=== PATIENT | male | born 1995 | race Caucasian/White ===

== ENCOUNTER 2017-11-23 18:23 | Inpatient (IN) | payer MEDICAID, OTHER ==
[~2017-11-23] VITALS: Ht 182.9 cm; Wt 88.1 kg
[2017-11-23] MEDS ORDERED: ANTIBIOTIC PO (20:17)
[2017-11-23] MEDS ORDERED: CEPH500 PO (20:21)
[2017-11-23] MEDS ORDERED: BACTDSB PO (20:21)
[2017-11-23 20:29] LABS: BASOPHILS % (AUTO) 0.5 % (0.0-2.0); EOSINOPHILS % (AUTO) 5.4 % (1.0-6.0); HEMATOCRIT 41.1 % (41-53); HEMOGLOBIN 14.3 g/dL (13.5-17.5); LYMPHOCYTES # (AUTO) 2.9 K/uL (1.0-4.8); MEAN CORPUSCULAR HEMOGLOBIN 30.6 pg (26.0-34.0); MEAN CORPUSCULAR HGB CONC 34.9 G/dL (31.0-37.0); MEAN CORPUSCULAR VOLUME 88 fL (80-100); MONOCYTES # (AUTO) 0.6 K/uL (0.1-1.0); MONOCYTES % (AUTO) 8.5 % (2.0-9.0); NEUTROPHILS # (AUTO) 3.4 K/uL (1.8-7.7); NEUTROPHILS % (AUTO) 46.6 % (40.0-70.0); PLATELET COUNT (AUTO) 208 K/uL (150-450); RED BLOOD CELL COUNT(AUTO) 4.69 MIL/uL (4.50-5.90); RED CELL DISTRIBUTION WIDTH 13.2 % (11.5-14.5)
[2017-11-23 20:39] LABS: ANION GAP 7 mmol/L (8-16); CALCIUM, TOTAL 8.8 mg/dL (8.8-10.5); CARBON DIOXIDE 27 mmol/L (22-29); CHLORIDE 105 mmol/L (98-107); CREATININE 0.73 mg/dL (0.60-1.30); GLOMERULAR FILTR. RATE CALC > 60 mL/min (>60); GLUCOSE,RANDOM 91 mg/dL (70-110); SODIUM SERUM 139 mmol/L (136-145); UREA NITROGEN, BLOOD 9 mg/dL (7-18)
[2017-11-23 20:45] LABS: ALANINE AMINOTRANSFERASE 27 U/L (12-78); ALBUMIN 3.8 g/dL (3.4-5.0); ALKALINE PHOSPHATASE 69 U/L (46-116); ASPARTATE AMINOTRANSFERASE 21 U/L (15-37); BILIRUBIN,TOTAL 0.3 mg/dL (0.1-1.0)
[2017-11-23 20:56] LABS: AMPHET/METH SCREEN,URINE POSITIVE (NEGATIVE); BARBITURATE SCREEN, URINE NEGATIVE (NEGATIVE); BENZODIAZEPINES SCREEN,URINE NEGATIVE (NEGATIVE); CANNABINOID SCREEN,URINE POSITIVE (NEGATIVE); COCAINE SCREEN,URINE NEGATIVE (NEGATIVE); METHADONE SCREEN, URINE NEGATIVE (NEGATIVE); OPIATE SCREEN,URINE NEGATIVE (NEGATIVE)
[2017-11-23 20:57] LABS: PHENCYCLIDINE SCREEN,URINE NEGATIVE (NEGATIVE)
[2017-11-23] MEDS ORDERED: OLANZapine 5 MG RAPDIS TABLET PO PRN (23:00)
[2017-11-23] MEDS ORDERED: ZOLPIDEM TARTRATE 10 MG TABLET PO PRN (23:00)
[2017-11-24 01:02] VITALS: BP 124/73
[2017-11-24 06:26] LABS: CHOL/HDL RATIO 3.5 (4.2-7.3); FREE T4 (FREE THYROXINE) 0.73 ng/dL (0.76-1.46); THYROID STIMULATING HORMONE 0.35 uIU/mL (0.36-3.74)
[2017-11-24] MEDS ORDERED: PROMETHAZINE HCL 25 MG TABLET PO PRN (12:45)
[2017-11-24] MEDS ORDERED: MAG HYDROX/AL HYDROX/SIMETH ES 30 ML SUSPENSION UDCUP PO PRN (12:45)
[2017-11-24] MEDS ORDERED: TUBERCULIN, PURIFIED PROTEIN DERIVATIVE 5 TU/0.1 ML SYG ID ONE (12:45)
[2017-11-24] MEDS ORDERED: ACETAMINOPHEN 325 MG TABLET PO PRN (12:45)
[2017-11-24] MEDS ORDERED: MAGNESIUM HYDROXIDE SUSPENSION 30 ML UDCUP PO PRN (12:45)
[2017-11-24] MEDS ORDERED: HydrOXYzine PAMOATE 50 MG CAPSULE PO PRN (12:45)
[2017-11-24] MEDS ORDERED: LOPERAMIDE HCL 2 MG CAPSULE PO PRN (12:45)
[2017-11-24] MEDS ORDERED: GuaiFENesin/D-METHORPHAN [SUGAR-FREE] 200-20MG/10 ML SYRUP UDCUP PO PRN (12:45)
[2017-11-24] MEDS: LORazepam 2 MG TABLET PO PRN (13:25)
[2017-11-24] MEDS: CEPHALEXIN MONOHYDRATE 500 MG CAPSULE PO SCH ×3 (13:38→20:03)
[2017-11-24] MEDS: BACITRACIN 28.4 GM OINTMENT TP SCH ×2 (13:39→17:29)
[2017-11-24 14:03] VITALS: BP 103/53
[2017-11-24] MEDS: THIAMINE HCL 100 MG TABLET PO SCH (17:29)
[2017-11-24] MEDS: SULFAMETHOX/TRIMETH DS 800-160 MG/TABLET PO SCH (17:29)
[2017-11-24 20:07] VITALS: BP 117/60
[2017-11-24] MEDS ORDERED: OLANZapine 5 MG RAPDIS TABLET PO SCH (21:00)
[2017-11-25] MEDS: CEPHALEXIN MONOHYDRATE 500 MG CAPSULE PO SCH ×4 (08:54→20:59)
[2017-11-25] MEDS: MULTIVITAMINS WITH MINERALS, THERAPEUTIC TABLET PO SCH (08:54)
[2017-11-25] MEDS: NALTREXONE HCL 50 MG TABLET PO SCH (08:54)
[2017-11-25] MEDS: FOLIC ACID 1 MG TABLET PO SCH (08:54)
[2017-11-25] MEDS: SULFAMETHOX/TRIMETH DS 800-160 MG/TABLET PO SCH ×2 (08:54→17:06)
[2017-11-25] MEDS: THIAMINE HCL 100 MG TABLET PO SCH ×2 (08:54→17:06)
[2017-11-25] MEDS ORDERED: FLUoxetine HCL 20 MG CAPSULE PO SCH (09:00)
[2017-11-25 10:04] VITALS: BP 132/68
[2017-11-25] MEDS: NICOTINE 14 MG/24 HOUR PATCH TD SCH (10:52)
[2017-11-25] MEDS: BACITRACIN 28.4 GM OINTMENT TP SCH ×2 (11:13→17:06)
[2017-11-25] MEDS: LORazepam 2 MG TABLET PO PRN ×2 (11:14→17:56)
[2017-11-25] MEDS ORDERED: FLUO-191 PO (13:12)
[2017-11-25] MEDS ORDERED: NALT50TA PO (13:12)
[2017-11-25 19:16] VITALS: BP 133/82
[2017-11-26 07:09] LABS: FREE T4 (FREE THYROXINE) 0.49 ng/dL (0.76-1.46); THYROID STIMULATING HORMONE 0.23 uIU/mL (0.36-3.74)
[2017-11-26] MEDS: NALTREXONE HCL 50 MG TABLET PO SCH (08:46)
[2017-11-26] MEDS: MULTIVITAMINS WITH MINERALS, THERAPEUTIC TABLET PO SCH (08:46)
[2017-11-26] MEDS: FOLIC ACID 1 MG TABLET PO SCH (08:46)
[2017-11-26] MEDS: THIAMINE HCL 100 MG TABLET PO SCH (08:46)
[2017-11-26] MEDS: CEPHALEXIN MONOHYDRATE 500 MG CAPSULE PO SCH (08:46)
[2017-11-26] MEDS: BACITRACIN 28.4 GM OINTMENT TP SCH (08:49)
[2017-11-26] MEDS: SULFAMETHOX/TRIMETH DS 800-160 MG/TABLET PO SCH (08:49)
[2017-11-26] MEDS: NICOTINE 14 MG/24 HOUR PATCH TD SCH (08:50)
[2017-11-26] MEDS ORDERED: FLUoxetine HCL 20 MG CAPSULE PO SCH (09:00)
[2017-11-26 09:59] VITALS: BP 121/87
[2017-11-26] MEDS ORDERED: BACI3.5O22 OP (10:58)
[2017-11-26] MEDS ORDERED: FLUO-191 PO (10:58)
[2017-11-26] MEDS ORDERED: NALT50TA6 PO (10:58)
== END 2017-11-26 12:30 | disposition home or self-care (01) | DRG 751 ==
LOC: EMS 18:24 → 3EI 23:30
PROVIDERS: ADMIT Psychiatry & Neurology Psychiatry; ATTEND Psychiatry & Neurology Psychiatry
DX: F33.2 Major depressive disorder, recurrent severe without psychotic features (principal); R45.851 Suicidal ideations; Z91.19 Patient's noncompliance with other medical treatment and regimen; F12.90 Cannabis use, unspecified, uncomplicated; F15.10 Other stimulant abuse, uncomplicated; F43.10 Post-traumatic stress disorder, unspecified; F17.210 Nicotine dependence, cigarettes, uncomplicated; Z59.0 Homelessness; Z79.2 Long term (current) use of antibiotics; Z91.5 Personal history of self-harm
CPT/HCPCS: 80074; 82306; 82607; 82746; 84436; 84439; 84443; 86592; 99285; G0480